=== PATIENT | male | born 1945 | race Caucasian/White ===

== ENCOUNTER → 2019-10-14 | Outpatient (CLI) | payer MEDICARE, OTHER ==
[~2019-10-14] MED LIST: CHOL10002 PO; DYAZIDE 75/50 PO; Glucosamine Co1 EAC1 PO; LOSA50 PO; SODBIC650 PO; TAMS.4ER PO
[2019-10-14 11:14] LABS: Protein, Urine Quantitative 171.5 mg/dL (0.0-11.9)
== END | disposition home or self-care (01) ==
LOC: LAB SHORT 08:29 → OLS 08:29
PROVIDERS: Internal Medicine
DX: N18.4 Chronic kidney disease, stage 4 (severe) (principal)
CPT/HCPCS: 81050; 84156